=== PATIENT | male | born 1960 | race Caucasian/White ===

== ENCOUNTER 2020-10-22 23:08 | Inpatient (IN) | payer OTHER ==
[~2020-10-22] VITALS: Ht 172.7 cm; Wt 90.7 kg
[~2020-10-22 23:08] MED LIST: ASPIR 8181 MG PO; K-DUR TAB 10 M10 MEQ PO; LASIX20 MG PO; MEDROL4 MG PO; METOPROLOL TART25 MG PO; NEURONTIN 300300 MG PO
[2020-10-22 23:32] LABS: HEMOGLOBIN 16.3 gm/dl (14.0-17.5); RED BLOOD COUNT 5.27 M/UL (4.20-5.50); WHITE BLOOD COUNT 8.7 K/UL (4.5-11.0)
[2020-10-23] LABS: BUN/CREATININE RATIO 15 (0-10)
[2020-10-23] MEDS ORDERED: TYLENOL325 M1 PO (09:54)
[2020-10-23] MEDS ORDERED: AMOXICILLIN500 MG PO (09:55)
[2020-10-23] MEDS ORDERED: IBUPROFEN600 MG PO (09:55)
[2020-10-23] MEDS ORDERED: ATIVAN 1MG TABLE1 MG PO (09:56)
[2020-10-23] MEDS ORDERED: NEURONTIN300 MG PO (09:56)
[2020-10-23] MEDS ORDERED: CRESTOR 10 MG T10 MG PO (09:56)
[2020-10-23] MEDS ORDERED: COLCHICINE 0.60.6 MG PO (09:57)
[2020-10-23] MEDS ORDERED: XALATAN2.5 ML EYEBOTH (09:57)
--- NOTE | 2020-10-23 23:01 | NUR ---
PT REFUSED ATIVAN DOSE. OMNICELL DIDNT REQUIRE WITNESS OF WASTE HOWEVER, NO MEJIA RN WITNESSED WASTE OF MEDICATION
[2020-10-24 05:42] LABS: BUN/CREATININE RATIO 14 (0-10)
[2020-10-26 06:28] LABS: HEMOGLOBIN 16.9 gm/dl (14.0-17.5); RED BLOOD COUNT 5.48 M/UL (4.20-5.50)
[2020-10-26 07:00] LABS: BUN/CREATININE RATIO 14 (0-10)
== END 2020-10-26 19:29 | disposition short-term general hospital (02) | DRG 282 ==
LOC: ER1 23:08 → CDU 10-23 03:28 → M/S 10-23 03:28
PROVIDERS: Internal Medicine Cardiovascular Disease; Physician Assistant; ADMIT Internal Medicine
PROC: 4A023N7 Measurement of Cardiac Sampling and Pressure, Left Heart, Percutaneous Approach (ICD-10-PCS; principal; 2020-10-26)
PROC: B2111ZZ Fluoroscopy of Multiple Coronary Arteries using Low Osmolar Contrast (ICD-10-PCS; 2020-10-26)
PROC: B2151ZZ Fluoroscopy of Left Heart using Low Osmolar Contrast (ICD-10-PCS; 2020-10-26)
DX: I21.4 Non-ST elevation (NSTEMI) myocardial infarction (principal); E11.9 Type 2 diabetes mellitus without complications; E78.5 Hyperlipidemia, unspecified; M10.9 Gout, unspecified; I20.9 Angina pectoris, unspecified; Z20.822 Contact with and (suspected) exposure to COVID-19; E66.9 Obesity, unspecified; M47.892 Other spondylosis, cervical region; Z96.5 Presence of tooth-root and mandibular implants; Z82.49 Family history of ischemic heart disease and other diseases of the circulatory system; Z87.891 Personal history of nicotine dependence; Z68.30 Body mass index [BMI] 30.0-30.9, adult; Z83.49 Family history of other endocrine, nutritional and metabolic diseases; Z83.438 Family history of other disorder of lipoprotein metabolism and other lipidemia; Z79.82 Long term (current) use of aspirin; Z79.899 Other long term (current) drug therapy; Z79.4 Long term (current) use of insulin
CPT/HCPCS: ECHO; 36415; 71046; 78452; 80048; 80053; 80061; 82550; 82553; 82962; 83036; 84484; 85025; 93005; 93017; 93306; 93308; 99285; A9502; C1769; C1894; J1644; J1650; J2250; J2370; J2785; J3010; Q9967; U0002

== ENCOUNTER → 2020-12-08 | Outpatient (CLI) | payer OTHER ==
[~2020-12-08] MED LIST changes: +AMOXICILLIN500 MG PO; +ATIVAN 1MG TABLE1 MG PO; +COLCHICINE 0.60.6 MG PO; +CRESTOR 10 MG T10 MG PO; +IBUPROFEN600 MG PO; +NEURONTIN300 MG PO; +TYLENOL325 M1 PO; +XALATAN2.5 ML EYEBOTH
== END ==
LOC: EXRD 10:39
DX: M79.604 Pain in right leg (principal); M79.605 Pain in left leg
CPT/HCPCS: 93925